=== PATIENT | male | born 1990 | race Caucasian/White ===

== ENCOUNTER 2021-03-12 10:23 | Emergency (ER) | payer OTHER, SELFPAY ==
[2021-03-12 10:25] VITALS: BP 133/81; PULSE 96; RESP 16; TEMP 36.2; O2SAT 94; BMI 31.8
--- NOTE | 2021-03-12 10:52 | CT_ITS ---
STUDY: CT BRAIN WITHOUT CONTRAST REASON FOR EXAM: Male, 31 years old. Dizziness RADIATION DOSAGE (If Supplied By Facility): CTDIvol = ( 44.99 ) mGy, DLP = ( 779.24 ) mGycm TECHNIQUE: Transaxial CT imaging of the brain was performed without administration of intravenous contrast material. Individualized dose optimization techniques were used for this CT. COMPARISON: No relevant priors. FINDINGS: Normal soft tissue structures. Normal calvarium. Normal size ventricles and extra-axial spaces for the patient''s age. Normal white matter tracts of the cerebral hemispheres. Normal basal ganglia and thalami. Normal brainstem. Normal cerebellum. There is no intracranial hemorrhage. There are no findings of an acute ischemic infarction. Normal visualized paranasal sinuses. CT/Brain/Head without Contrast IMPRESSION: Normal unenhanced CT scan of the brain. Electronically Signed: Rashid Cristobal MD at 11:38 EDT , Service support ,
[2021-03-12] MEDS: Meclizine HCl 25 MG Tablet PO (11:05)
[2021-03-12] MEDS: 0.9% Normal Saline 1,000 ML 1000 ML IV (11:05)
[2021-03-12 11:11] LABS: Absolute Lymphocyte Count 1.16 X10^3/uL (0.83-4.51); Basophil# 0.04 X10^3/uL; Basophil% 0.7 % (0-1); Eosinophil# 0.03 X10^3/uL; Eosinophils% 0.5 % (0-5); Hematocrit 44.2 % (40-54); Lymphocyte # 1.16 X10^3/ul (0.83-4.51); Lymphocyte % 20.6 % (19-41); Mean Corp Hgb Conc 33.9 g/dL (32-36); Mean Corpuscular Hgb 29.4 pg (27.0-32.0); Mean Corpuscular Volume 86.7 fL (80-94); Monocyte# 0.38 X10^3/uL; Monocyte% 6.8 % (0-10); NRBC Flagged by Analyzer 0 % (0-5); Neutrophil # 3.99 X10^3/uL (2.7-7.7); Platelet Count 254 K/mm3 (150-450); RBC Distribution Width CV 12.1 % (11.6-14.6); RBC Distribution Width SD 38.2 fl (35.1-43.9); White Blood Count 5.6 K/mm3 (4.4-11.0)
[2021-03-12 11:29] LABS: ALB/GLOB Ratio 1.3 RATIO (0.9-2.4); AST(SGOT) 27 U/L (15-37); Alanine Aminotransfer ALT/SGPT 30 U/L (16-61); Albumin, Serum 4.1 g/dL (3.2-5.0); Alkaline Phosphatase 83 U/L (45-117); Anion Gap 4 (5-15); BUN 10 mg/dL (7-18); BUN/Creat Ratio 10.4 RATIO (10-20); Calcium,Total 9.4 mg/dL (8.5-10.1); Chloride 108 mmol/L (98-107); Creatinine, Serum 0.96 mg/dL (0.70-1.30); EST Glomerular Filtration Rate 99 mL/min (>60); Est Glom Filt Rate - Afr Amer 119 mL/min (>60); Estimated Creatinine Clearance 117.23 ml/min; Globulin 3.1 g/dL (2.2-4.2); Glucose 119 mg/dL (74-106); Potassium 3.7 mmol/L (3.5-5.1); Protein, Total 7.2 g/dL (6.4-8.2); Sodium Level 142 mmol/L (136-145)
[2021-03-12 12:02] VITALS: BP 125/71; BP 133/68; BP 166/82; PULSE 101; PULSE 82; PULSE 85
--- NOTE | 2021-03-12 12:18 | EX.ED.DYSGE1 ---
HPI History of Present Illness Chief Complaint: Dizziness Informant: patient Onset/Context/Timing Onset: Yesterday Context: Gradual Onset Timing: Continuous and Waxes and wanes Quality: Off balance, lightheaded Location: Head Worsened by: Turning head quickly, bending forward and standing up quickly Relieved by: Nothing Narrative Narrative: Patient presents with dizziness that began yesterday. Patient states he feels like he is off balance. Patient states he feels like he is standing on a boat. Patient states he also feels lightheaded. Patient states it is worse whenever he turns his head quickly and bends forward then stands up quickly. Patient states it has been constant but waxing and waning. Patient denies any hearing changes or tinnitus. Patient denies any headaches. Patient admits to some nausea but denies any vomiting. [facility] Medical History Tonsillectomy planned Home Medications meclizine 25 mg PO Q8H PRN PRN #20 tab 03/12/21 [Rx Last Taken Unknown] Allergy/AdvReac Type Severity Reaction Status Date / Time Sulfa (Sulfonamide Allergy Anaphylaxis Verified 03/12/21 10:24 Antibiotics) Social History Smoking Status: Never smoker ROS ROS ED Constitutional Constitutional ED: Denies chills or fever(s) Eyes Eyes: Denies blurry vision or change in vision ENT ENT ED: Denies rhinorrhea or sore throat Cardiovascular Cardiovascular: Denies chest pain or palpitations Respiratory/Chest Respiratory/Chest: Denies cough or dyspnea Gastrointestinal Gastrointestinal: Reports nausea; Denies vomiting Genitourinary Genitourinary ED: Denies dysuria or hematuria Musculoskeletal Musculoskeletal: Denies back pain or neck pain Integumentary Denies abscess or rash Neurologic Neurologic: Denies headache(s) or weakness Allergic/Immunologic Allergic/Immunologic ED: Denies mouth swelling or urticaria EXAM Physical Exam Const Vital Signs: 03/12/21 10:25 03/12/21 10:53 03/12/21 12:02 Temperature 97.2 F L Temperature Source Oral Pulse Rate 96 Pulse Rate [Lying] 85 Pulse Rate [Sitting] 82 Pulse Rate [Standing] 101 H Respiratory Rate 16 Respiratory Effort Normal Non-Labored Respiratory Pattern Normal Blood Pressure 133/81 H Blood Pressure [Lying] 133/68 H Blood Pressure [Sitting] 125/71 H Blood Pressure [Standing] 166/82 H Blood Pressure Mean 98 Blood Pressure Mean [Lying] 89 Blood Pressure Mean [Sitting] 89 Blood Pressure Mean [Standing] 110 Pulse Ox 94 Oxygen Delivery Method Room Air Positive well nourished and well developed General Appearance ED: well developed HEENT normocephalic and atraumatic Eyes PERRL and EOMs intact bilaterally Neck supple and no JVD Resp normal respiratory effort and clear to auscultation bilaterally Cardio regular rate, regular rhythm and no murmurs Rate: regular rate Rhythm: regular rhythm GI normal to inspection, nondistended, normoactive bowel sounds, non-tender and non-distended Auscultation: normoactive bowel sounds Palpation: soft Extremity normal to inspection General Extremety ED: Negative for edema or tenderness General Extremity: Negative for edema Neuro oriented x3, CN's II-XII intact bilaterally and no sensory deficits noted Neuro Narrative: There is no nystagmus noted. There is some reproducible dizziness with Fairdealing-Hallpike maneuver. Sensorium / Orientation: alert Motor Exam: strength 5/5 throughout Psych mental status grossly normal Skin Rashes: no rashes MDM MDM MDM Narrative Medical decision making narrative: Patient was given IV fluids. Patient was given a dose of meclizine. Orthostatic vital signs were within normal limits. CT scan of the brain was obtained. There is no acute intracranial abnormality. This was interpreted by the radiologist and reviewed by myself. CBC and comprehensive metabolic profile were obtained and were essentially within normal limits. Patient is feeling better on reevaluation. Patient was able to stand without difficulty. Patient was given a prescription for meclizine. Patient was instructed to follow-up with his primary care physician in 5 to 7 days. Patient understood and was agreeable with the plan. All questions were answered. Lab Data Attestation: I reviewed the patient's lab results. Labs: Laboratory Results - last 24 hr 03/12/21 03/12/21 11:04 11:04 WBC 5.6 RBC 5.10 Hgb 15.0 Hct 44.2 MCV 86.7 MCH 29.4 MCHC 33.9 RDW Std Deviation 38.2 RDW Coeff of Deb 12.1 Plt Count 254 MPV 9.0 Immature Gran % (Auto) 0.400 Neut % (Auto) 71.0 H Lymph % (Auto) 20.6 [place] % (Auto) 6.8 Eos % (Auto) 0.5 Baso % (Auto) 0.7 Absolute Neuts (auto) 4.0 Absolute Lymphs (auto) 1.16 Nucleated RBC % 0 Sodium 142 Potassium 3.7 Chloride 108 H Carbon Dioxide 30.0 Anion Gap 4 L BUN 10 Creatinine 0.96 Estim Creat Clear Calc 117.23 Est GFR (MDRD) Af Amer 119 Est GFR (MDRD) Non-Af 99 BUN/Creatinine Ratio 10.4 Glucose 119 H Calcium 9.4 Total Bilirubin 1.70 H AST 27 ALT 30 Alkaline Phosphatase 83 Total Protein 7.2 Albumin 4.1 Globulin 3.1 Albumin/Globulin Ratio 1.3 Radiography Diagnostic Testing: Radiology Impression Brain CT 03/12/21 10:52 IMPRESSION: Normal unenhanced CT scan of the brain. Electronically Signed: Rashid Cristobal MD at 11:38 EDT , Service support , Discharge Plan Triage Chief Complaint: Dizziness ED Provider: Trip Vega Dx/Rx/DC Orders Clinical Impression: Vertigo Instructions: ED Vertigo, Unspecified Prescriptions: New meclizine 25 MG tablet 25 mg PO Q8H PRN PRN (Reason: Dizziness) Qty: 20 RF: 0 Stand Alone Forms: ED Work / School Excuse Primary Care Provider: Jackie Enciso Referrals: Jackie Enciso, [Primary Care Provider] - 3-5 Days Disposition Disposition: Home, self care
== END 2021-03-12 12:43 | disposition home or self-care (01) ==
PROVIDERS: Emergency Provider Emergency Medicine; PCP Family Medicine
DX: R42 Dizziness and giddiness (principal)
CPT/HCPCS: 70450; 80053; 85025; 99284; J7030; A4216